=== PATIENT | female | born 1945 | race Caucasian/White ===

== ENCOUNTER → 2016-05-12 | Outpatient (CLI) | payer MEDICARE, BC ==
[~2016-05-12] MED LIST: AMOX-351 PO; ASPI325T PO; CALMOSEPTINE OINTMENT 3.5 G PACKET TOP ONE; CLOP75TA PO; DIPH25CA2 PO; FURO20TA4 PO; FURO40TA5 PO; GABA-305 PO; HUM10VIA3 SQ; HYDR-4246 PO; INSU100V36 SQ; ISOS10TA2 PO; LEVE500T26 PO; LOPE2CAP14 PO; LOSA50TA52 PO; METF500T4 PO; METO25TA6 PO; MOME17SP2 EA NOSTRIL; OXCA300T18 PO; PYRI100T2 PO; SIMV40TA5 PO
== END ==
LOC: NWCC 14:20
PROVIDERS: ATTEND Internal Medicine
DX: E11.621 Type 2 diabetes mellitus with foot ulcer (principal); L97.422 Non-pressure chronic ulcer of left heel and midfoot with fat layer exposed; R60.0 Localized edema; I70.292 Other atherosclerosis of native arteries of extremities, left leg
CPT/HCPCS: 11042; A6209; A6210; A9270; G0463

== ENCOUNTER → 2016-05-26 | Outpatient (CLI) | payer MEDICARE, BC ==
[~2016-05-26] MED LIST changes: -CALMOSEPTINE OINTMENT 3.5 G PACKET TOP ONE
== END ==
LOC: NWCC 13:38
PROVIDERS: ATTEND Internal Medicine
DX: E11.621 Type 2 diabetes mellitus with foot ulcer (principal); L97.421 Non-pressure chronic ulcer of left heel and midfoot limited to breakdown of skin; I73.9 Peripheral vascular disease, unspecified

== ENCOUNTER 2016-09-08 08:53 | Inpatient (IN) ==
[2016-09-08] MEDS: SALINE FLUSH 10ml SYRINGE IVF PRN ×6 (09:09→23:23)
--- NOTE | 2016-09-08 09:38 | Emergency Department Report ---
General Adult HPI - General Chief complaint: Altered Mental Status Stated complaint: unresponsive Time Seen by Provider: 09/08/16 09:00 Source: family, EMS Mode of arrival: EMS Limitations: other (Clinical Condition) - History of Present Illness HPI narrative: 71-year-old female is brought to the emergency department via [facility] for unresponsiveness. Patient was last noted normal at bedtime yesterday evening. Patient's awoke around 7 o'clock today and noted his was unresponsive. Patient's blood glucose was 72. Patient was transported [facility] via EMS. Patient arrives unresponsive with gurgling respirations. Patient's is at bedside. Patient has been states that his does not wish to have heroic measures performed. Patient's declines recommended endotracheal intubation at this time. He requests that the patient be made comfort care measures only as he states this is her wish. He requests to stop ongoing workup at this time. Patient was given 1 amp of D50 intravenously without improvement. Patient's primary care physician Dr. Olson is contacted and is in agreement with making the patient comfort care only. History is limited secondary to the patient's clinical condition. - Related Data Home Medications Medication Instructions Recorded Confirmed Clopidogrel Bisulfate [Plavix] 75 mg PO DAILY #0 11/04/14 09/08/16 Isosorbide Dinitrate [Isordil] 10 mg PO TID #0 11/04/14 09/08/16 Loperamide HCl [Anti-Diarrheal] 2 mg PO QID PRN #0 11/04/14 09/08/16 Losartan Potassium 50 mg PO BID #0 11/04/14 09/08/16 Metoprolol Tartrate 25 mg PO BIDWM #0 11/04/14 09/08/16 Mometasone Furoate [Nasonex] 1 spray EA NOSTRIL DAILY PRN #0 11/04/14 09/08/16 Simvastatin 40 mg PO HS #0 11/04/14 09/08/16 diphenhydrAMINE HCl [Allergy 50 mg PO HS #0 11/04/14 09/08/16 Relief] levETIRAcetam [Levetiracetam] 1,000 mg PO BID #0 11/04/14 09/08/16 Insulin Regular, Human [Novolin R] 26 - 40 unit SQ TIDWM #0 12/10/14 09/08/16 Metformin HCl 1,000 mg PO BID #0 12/10/14 09/08/16 Gabapentin 600 mg PO TID #0 12/23/14 09/08/16 Furosemide 40 mg PO BID #0 04/22/16 09/08/16 Novolin 70/30 (100Unit/ml) Inj 60 - 90 unit SQ BID #0 04/22/16 09/08/16 [Novolin 70/30] OXcarbazepine [Oxcarbazepine] 300 mg PO BID 09/08/16 09/08/16 Pnv No.95/Ferrous Fum/Folic AC 1 tab PO DAILY 09/08/16 09/08/16 [ Tablet] Potassium Chloride 10 meq PO DAILY 09/08/16 09/08/16 Allergies Allergy/AdvReac Type Severity Reaction Status Date / Time paroxetine Allergy Intermediate Verified 04/22/16 13:57 Iodinated Contrast- Oral and Allergy Unknown Verified 05/29/14 09:00 IV Dye tramadol Allergy Unknown Verified 05/29/14 09:00 codeine AdvReac Intermediate Verified 04/22/16 13:57 STEROIDS Allergy Unknown ALLERGY TO Uncoded 12/09/14 09:05 ALL STEROIDS Review of Systems Limitations: ROS unobtainable due to patient's medical condition [facility] Patient Stated Medical History Cerebrovascular Accident Yes: MULTIPLE HEMORRHAGIC Hypertension Yes Other Respiratory Yes: ALLERGIES Diabetes Mellitus Type 2 Yes Clotting Problems Yes: ON PLAVIX Surgical History: Cardiac catheterization Family History: Reviewed noncontributory. - Social History Smoking status: Never smoker Substance use type: does not use Alcohol intake frequency: does not drink Physical Exam - Limitations Limitations: other (Responsive to painful stimuli only. ) - General General appearance: obtunded - Normal Exams: Head:: Normocephalic without trauma Eyes:: No scleral icterus (Pupils equal.), irritation, or foreign bodies noted ENMT:: No facial trauma, nasal exudates, pharyngeal erythema, or exudates are noted Chest/Respirations:: Clear all smith, with good airflow, and symmetry bilaterally Cardiovascular:: Regular rate and rhythm, without murmur or gallop, Pulses 2+ all extremities, capillary refill, <2 seconds all extremities Abdomen:: Bowel sounds positive, soft, non-tender, non-distended, no hepatosplenomegaly, masses or bruits noted Lymphatic:: No lymphadenopathy, or lymphedema noted Musculoskeletal:: No tenderness, or deformity noted Integumentary:: No rashes, hives, or bruising noted, hair and nails, without abnormality Course Vital Signs Temperature 98.7 F 09/08/16 08:53 Pulse Rate 100 09/08/16 08:53 Respiratory Rate 40 H 09/08/16 08:53 Blood Pressure 210/107 H 09/08/16 08:53 Pulse Oximetry 100 09/08/16 08:53 Temperature 99.7 F 09/08/16 15:29 Pulse Rate 106 H 09/08/16 15:29 Respiratory Rate 24 09/08/16 15:29 Blood Pressure 155/90 H 09/08/16 15:29 Pulse Oximetry 100 09/08/16 15:29 Medical Decision Making - [facility] Narrative Medical decision making narrative: Patient's family ( and daughter) arrive at bedside immediately after patient's arrival to the emergency Department. Patient has gurgling respirations and is unresponsive except to painful stimuli. My recommendation is endotracheal intubation at this time secondary to the gurgling respiration for airway protection which the patient's declines. He requests to make the patient comfort care only at this time. Patient's requests to stop the evaluation at this time and to provide medications to make the patient comfortable so she is not suffering. Long discussion is had with the regarding this and the risk versus benefit of which he verbalizes agreement and understanding of. Patient's remained steadfast in his decision to make the patient comfort care only at this time and to stop the ongoing evaluation. Patient is discussed with her primary care physician Dr. Olson who is in agreement with the current plan of management. Patient is given gentle IV hydration. She is given parental narcotic and antiemetic medications intravenously with improvement of symptoms in the emergency department. She is admitted to the service of Dr. Olson who will obtain a hospice consult at this time. Dr. Olson is in agreement with the current plan of management. No further intervention is needed at this time. - Differential Diagnosis CVA, intracerebral hemorrhage, respiratory failure, metabolic disorder - Lab Data Result diagrams: 09/08/16 09:20 09/08/16 09:20 Lab Results 09/08/16 09/08/16 09/08/16 Range/Units 09:00 09:20 09:20 WBC 13.2 H (4.5-11.0) T/MM3 RBC 4.49 (4.00-5.20) M/MM3 Hgb 12.6 (12-16) GM/DL Hct 39.9 (36-46) % MCV 88.9 (80-100) UM3 MCH 28.1 (26-34) UUG MCHC 31.6 (31-37) GM/DL RDW Std Deviation 43.0 (36.9-50.2) FL Plt Count 171 (130-400) T/MM3 MPV 12.3 (9.4-12.4) UM3 Neutrophils % (Manual) 68.0 H (33-66) % Band Neutrophils % 2.0 (0-6) % Lymphocytes % (Manual) 21.0 L (23-45) % Monocytes % (Manual) 6.0 (0-9.0) % Eosinophils % (Manual) 3.0 (0-4) % Neutrophils # (Manual) 9.0 H (1.8-7.7) T/MM3 Band Neutrophils # 0.3 T/MM3 Lymphocytes # (Manual) 2.8 (1-4.8) T/MM3 Monocytes # (Manual) 0.8 (0-0.8) T/MM3 Eosinophils # (Manual) 0.4 (0-0.5) T/MM3 RBC Morph Comment Normal ABG pH 7.420 (7.350-7.450) ABG pCO2 43 (34-45) MMHG ABG pO2 190 H (80-100) MMHG ABG HCO3 28 H (22-26) MEQ/L ABG Total CO2 29.2 H (23-27) MEQ/L ABG O2 Saturation 100.0 H (95.0-98.0) % ABG Base Excess 3.0 H (-2.0-2.0) MMOL/L O2 Delivery Method Nrb mask, % FiO2 % 100 Turbidity Cancelled Sodium Cancelled Potassium Cancelled Chloride Cancelled Carbon Dioxide Cancelled Anion Gap Cancelled BUN Cancelled Creatinine Cancelled GFR Calculation Cancelled BUN/Creatinine Ratio Cancelled Glucose Cancelled Calculated Osmolality Cancelled Calcium Cancelled Total Bilirubin Cancelled Icterus Index Cancelled AST Cancelled ALT Cancelled Alkaline Phosphatase Cancelled Troponin I Cancelled Total Protein Cancelled Albumin Cancelled Globulin Cancelled Albumin/Globulin Ratio Cancelled Plasma Lactate Cancelled Procalcitonin Specimen Hemolysis Cancelled 09/08/16 09/08/16 Range/Units 09:22 09:22 WBC (4.5-11.0) T/MM3 RBC (4.00-5.20) M/MM3 Hgb (12-16) GM/DL Hct (36-46) % MCV (80-100) UM3 MCH (26-34) UUG MCHC (31-37) GM/DL RDW Std Deviation (36.9-50.2) FL Plt Count (130-400) T/MM3 MPV (9.4-12.4) UM3 Neutrophils % (Manual) (33-66) % Band Neutrophils % (0-6) % Lymphocytes % (Manual) (23-45) % Monocytes % (Manual) (0-9.0) % Eosinophils % (Manual) (0-4) % Neutrophils # (Manual) (1.8-7.7) T/MM3 Band Neutrophils # T/MM3 Lymphocytes # (Manual) (1-4.8) T/MM3 Monocytes # (Manual) (0-0.8) T/MM3 Eosinophils # (Manual) (0-0.5) T/MM3 RBC Morph Comment ABG pH (7.350-7.450) ABG pCO2 (34-45) MMHG ABG pO2 (80-100) MMHG ABG HCO3 (22-26) MEQ/L ABG Total CO2 (23-27) MEQ/L ABG O2 Saturation (95.0-98.0) % ABG Base Excess (-2.0-2.0) MMOL/L O2 Delivery Method FiO2 % Turbidity Sodium Potassium Chloride Carbon Dioxide Anion Gap BUN Creatinine GFR Calculation BUN/Creatinine Ratio Glucose Calculated Osmolality Calcium Total Bilirubin Icterus Index AST ALT Alkaline Phosphatase Troponin I Total Protein Albumin Globulin Albumin/Globulin Ratio Plasma Lactate 1.9 Procalcitonin Cancelled Specimen Hemolysis - Radiology Data CT HEAD - Declined. CXR - Declined. - EKG Data EKG #1 EKG results narrative: EKG - Cancelled. Request of Family. Disposition Clinical Impression: Altered mental status Qualifiers: Coma depth: unspecified coma depth Coma timing: unspecified coma timing Disposition: To [facility] Condition: Critical Time of Disposition: 10:00 (Admit. Dr. Samuel ) - Seen By: physician
[2016-09-08] MEDS ORDERED: FentaNYL 100 MCG/2 ML INJECTION IVP PRN (09:41)
[2016-09-08] MEDS ORDERED: ONDANSETRON 4 MG/2 ML INJECTION IVP ONE (09:41)
[2016-09-08] MEDS ORDERED: DEXTROSE 50% INJECTION 50ml VIAL IV ONE (12:04)
[2016-09-08] MEDS ORDERED: NS 1,000 ML IV ONE (12:05)
[2016-09-08] MEDS ORDERED: ONDANSETRON 4 MG/2 ML INJECTION IVP PRN (14:41)
[2016-09-08] MEDS: MORPHINE SULFATE 2 MG SYRINGE IVP PRN ×3 (15:12→23:30)
[2016-09-08] MEDS: Hyoscyamine 0.125 MG SL tab SL PRN ×2 (15:41→18:05)
--- NOTE | 2016-09-08 18:56 | Internal Med History&Physical ---
Internal Medicine HPI Chief complaint: unresponsive History of present illness: Haydee Iqbal is a 71-year-old obese white female. Last Tuesday she was released from shelter following an episode of sepsis caused by an infected wound of her left lower extremity. She seemed to be walking fine and doing all of her activities of daily living through last night. This morning however, her could not awaken her and she was gurgling, struggling to breathe. EMS brought her to the emergency department and a septic workup was started. They were about to protect her airway by intubating her and order a CT of her head. She has a history of cerebral hemorrhage in the past. At that point her and daughter said no to this. They indicated that in their previous conversations with her she absolutely did not want this to happen and they were bound and determined to prevent that as well. Her wishes were respected and they did not intubate her. She was admitted at this time for hospice consult and comfort care measures. Review of Systems ROS unobtainable: due to mental status [facility] Patient Stated Medical History Cerebrovascular Accident Yes: MULTIPLE HEMORRHAGIC Hypertension Yes Other Respiratory Yes: ALLERGIES Diabetes Mellitus Type 2 Yes Clotting Problems Yes: ON PLAVIX Surgical History: Cardiac catheterization Family History: Unknown - Social History Smoking status: Never smoker Substance use type: does not use Alcohol intake: never Housing: house Household members: spouse service: No Current occupational status: retired Current occupational exposures/hazards: No Does patient use chewing tobacco?: No Current residence: Apartment/Private Home Medications Home Medications Medication Instructions Recorded Confirmed Type Clopidogrel Bisulfate [Plavix] 75 mg PO DAILY #0 11/04/14 09/08/16 History Isosorbide Dinitrate [Isordil] 10 mg PO TID #0 11/04/14 09/08/16 History Loperamide HCl [Anti-Diarrheal] 2 mg PO QID PRN #0 11/04/14 09/08/16 History Losartan Potassium 50 mg PO BID #0 11/04/14 09/08/16 History Metoprolol Tartrate 25 mg PO BIDWM #0 11/04/14 09/08/16 History Mometasone Furoate [Nasonex] 1 spray EA NOSTRIL DAILY PRN #0 11/04/14 09/08/16 History Simvastatin 40 mg PO HS #0 11/04/14 09/08/16 History diphenhydrAMINE HCl [Allergy 50 mg PO HS #0 11/04/14 09/08/16 History Relief] levETIRAcetam [Levetiracetam] 1,000 mg PO BID #0 11/04/14 09/08/16 History Insulin Regular, Human [Novolin R] 26 - 40 unit SQ TIDWM #0 12/10/14 09/08/16 History Metformin HCl 1,000 mg PO BID #0 12/10/14 09/08/16 History Gabapentin 600 mg PO TID #0 12/23/14 09/08/16 History Furosemide 40 mg PO BID #0 04/22/16 09/08/16 History Novolin 70/30 (100Unit/ml) Inj 60 - 90 unit SQ BID #0 04/22/16 09/08/16 History [Novolin 70/30] OXcarbazepine [Oxcarbazepine] 300 mg PO BID 09/08/16 09/08/16 History Pnv No.95/Ferrous Fum/Folic AC 1 tab PO DAILY 09/08/16 09/08/16 History [ Tablet] Potassium Chloride 10 meq PO DAILY 09/08/16 09/08/16 History Allergies Allergy/AdvReac Type Severity Reaction Status Date / Time paroxetine Allergy Intermediate Verified 04/22/16 13:57 Iodinated Contrast- Oral and Allergy Unknown Verified 05/29/14 09:00 IV Dye tramadol Allergy Unknown Verified 05/29/14 09:00 codeine AdvReac Intermediate Verified 04/22/16 13:57 STEROIDS Allergy Unknown ALLERGY TO Uncoded 12/09/14 09:05 ALL STEROIDS Exam Vital signs: Temperature 99.7 F 09/08/16 15:29 Pulse Rate 106 H 09/08/16 15:29 Respiratory Rate 24 09/08/16 15:29 Blood Pressure 155/90 H 09/08/16 15:29 Pulse Oximetry 100 09/08/16 15:29 Oxygen Delivery Method Non-Rebreather Oxygen Flow Rate 10 Narrative: Patient is unresponsive - Constitutional morbidly obese, obtunded - Routine HEENT Exam Head: Present: normocephalic, atraumatic Eye: Present: conjunctivae pink. Absent: conjunctival icterus, scleral injection ENT: Present: mucous membranes moist, nares patent - Routine Neck Exam Present: supple, full ROM. Absent: JVD, carotid bruit, lymphadenopathy, thyromegaly - Routine Respiratory Exam Present: rhonchi, diminished air movement - Routine Cardiovascular Exam Present: RRR, no murmur. Absent: S3, S4 - Routine Abdominal Exam Present: soft, normoactive bowel sounds, non distended. Absent: firm - Routine Skin Exam Present: erythema, wounds (left lower leg) - Routine Neurological Exam Present: altered mental status. Absent: alert, oriented X3, normal reflexes Toes upgoing to Babinski - Routine Psychiatric Exam Present: unable to assess Internal Medicine Results - Labs CBC & Chem 7: 09/08/16 09:20 09/08/16 09:20 Assessment and Plan (1) Unresponsive Current visit: Yes Status: Acute (2) Suspected cerebrovascular accident (CVA) Current visit: Yes Status: Acute (3) Loss of consciousness Current visit: Yes Status: Acute Sepsis Assessment - Evaluation Sepsis screening result: Sepsis Risk
[2016-09-08] MEDS: ATROPINE 1% EYE DROPS PO/SL PRN ×2 (19:28→23:26)
[2016-09-09] MEDS: MORPHINE SULFATE 2 MG SYRINGE IVP PRN ×8 (00:47→21:56)
[2016-09-09] MEDS: ATROPINE 1% EYE DROPS PO/SL PRN ×7 (00:55→21:58)
[2016-09-09] MEDS: SALINE FLUSH 10ml SYRINGE IVF PRN ×3 (00:59→20:38)
--- NOTE | 2016-09-09 18:32 | Internal Med Progress Note ---
Internal Medicine Subjective Patient seen and examined. Family at bedside. All questions answered. Remains unresponsive. Temp elevated. She appears comfortable. Exam Vital Signs: Temperature 101.8 F H 09/09/16 16:50 Pulse Rate 98 09/09/16 16:50 Respiratory Rate 32 H 09/09/16 16:50 Blood Pressure 152/70 H 09/09/16 16:50 Pulse Oximetry 91 09/09/16 16:58 Oxygen Delivery Method Non-Rebreather Oxygen Flow Rate 10 Height: 5 ft 8 in Weight: 103 kg - Constitutional Present: no acute distress, morbidly obese, obtunded - Routine HEENT Exam Head: Present: normocephalic, atraumatic Eye: Present: conjunctivae pink. Absent: conjunctival icterus, scleral injection, periorbital ecchymosis, periorbital swelling ENT: Present: mucous membranes moist, oropharynx clear, nares patent - Detailed Eye Exam Pupils: Bilateral regular, round, Bilateral nonreactive/fixed, Bilateral pinpoint Sclerae/Conjunctivae: Bilateral normal inspection - Routine Respiratory Exam Present: rales, rhonchi, diminished air movement. Absent: stridor, wheezes - Routine Cardiovascular Exam Present: RRR (distant) - Routine Abdominal Exam Present: soft, normoactive bowel sounds. Absent: distended, rebound, rigid - Routine Neurological Exam Absent: alert, oriented X3 - Routine Psychiatric Exam Present: unable to assess Internal Medicine Results - Labs CBC & Chem 7: 09/08/16 09:20 09/08/16 09:20 Progress Note-A&P (1) Unresponsive Status: Acute Current Visit: Yes (2) Suspected cerebrovascular accident (CVA) Status: Acute Current Visit: Yes (3) Loss of consciousness Status: Acute Current Visit: Yes - Time Spent With Patient Total time spent is greater than 50% in coordination of care (as documented) at patient's floor/unit and/or counseling patient: 25 - 35 minutes Sepsis Assessment - Evaluation Sepsis screening result: Sepsis Risk Hospital Course Summary Disclaimer: The visit summary below is not to be considered part of the above Progress Note. Hospital Course: 09/09/16 18:34 Patient remains unresponsive, but comfortable. Family at bedside.
[2016-09-09] MEDS: ACETAMINOPHEN 650 MG SUPPOSITORY PR PRN (23:16)
[2016-09-10] MEDS: MORPHINE SULFATE 2 MG SYRINGE IVP PRN ×3 (00:13→09:07)
[2016-09-10] MEDS: ATROPINE 1% EYE DROPS PO/SL PRN ×6 (00:22→21:08)
[2016-09-10] MEDS: SALINE FLUSH 10ml SYRINGE IVF PRN (03:02)
[2016-09-10] MEDS: MORPHINE SULFATE 10mg/0.5ml ORAL LIQ SL PRN ×4 (09:59→23:18)
[2016-09-10] MEDS ORDERED: WARFARIN 5 MG TABLET PO SCH (12:00)
--- NOTE | 2016-09-10 18:04 | Progress Note ---
Subjective: Coverage for Dr Olson. F/U: Unresponsiveness - suspect CVA/cerebral hemorrhage. Resting peacefully in bed. Appears comfortable. Pain and symptoms controlled well. Family pleased with care provided. Objective Vital signs: Temperature 100.1 F 09/10/16 18:00 Pulse Rate 97 09/10/16 18:00 Respiratory Rate 22 09/10/16 18:00 Blood Pressure 150/69 H 09/10/16 18:00 Pulse Oximetry 84 L 09/10/16 18:00 Oxygen Delivery Method Nasal Cannula Oxygen Flow Rate 4 Weight: 100.5 kg - Constitutional Present: no acute distress, well nourished, well developed, obese, other ( Appears comfortable) - Routine HEENT Exam Head: Present: normocephalic, atraumatic - Routine Respiratory Exam Present: rales, rhonchi, diminished air movement. Absent: respiratory distress - Routine Cardiovascular Exam Present: RRR - Routine Abdominal Exam Present: soft, non distended, non tender - Routine Extremities Exam Present: pulses intact. Absent: cyanosis, clubbing - Routine Skin Exam Absent: mottling - Routine Neurological Exam Unresponsive to verbal stimuli. Not moving ext spontaneously. - Routine Psychiatric Exam Present: unable to assess Results - Labs CBC & Chem 7: 09/08/16 09:20 09/08/16 09:20 Assessment and Plan (1) Suspected cerebrovascular accident (CVA) Problem details: Likely cerebral hemorrhage Current visit: Yes Status: Acute (2) Loss of consciousness Current visit: Yes Status: Acute (3) Unresponsive Current visit: Yes Status: Acute Resuscitation Status: Do Not Resuscitate Assessment and Plan: [facility] consulted. Roxanol SL prn pain/air hunger. Lorazepam SL prn anxiety/agitation/air hunger. Continue with comfort care measures - pain and symptoms control. Case discussed with nursing, Hospice nurse, and family. Time spent with pt care 25 minutes. Discussed case yesterday with Dr Olson in anticipation of him being away. Sepsis Assessment - Evaluation Sepsis screening result: Severe Sepsis Risk Hospital Course Summary Disclaimer: The visit summary below is not to be considered part of the above Progress Note. Hospital Course: 09/09/16 18:34 Patient remains unresponsive, but comfortable. Family at bedside. 09/10/16 18:11 [facility] consulted. Roxanol SL prn pain/air hunger. Lorazepam SL prn anxiety/agitation/air hunger. Continue with comfort care measures - pain and symptoms control.
[2016-09-11] MEDS: LORazepam INTENSOL 1mg/0.5ml ORAL LIQUID SL PRN ×2 (00:28→08:14)
[2016-09-11] MEDS: MORPHINE SULFATE 10mg/0.5ml ORAL LIQ SL PRN ×4 (02:37→09:35)
[2016-09-11] MEDS: ATROPINE 1% EYE DROPS PO/SL PRN ×2 (05:59→08:39)
[2016-09-11 08:14] VITALS: BP 176/86; PULSE 121; RESP 40; TEMP 102.7; O2SAT 80
[2016-09-11] MEDS: ACETAMINOPHEN 650 MG SUPPOSITORY PR PRN (08:17)
[2016-09-11] MEDS ORDERED: MORPHINE SULFATE 10mg/0.5ml ORAL LIQ SL PRN (09:58)
--- NOTE | 2016-09-11 11:01 | Death Note ---
Providers - Provider Primary care physician: Dr Olson Admitting clinician: Anil Olson Attending Physician: Anil Olson Consults: 09/08/16 11:02 Hospice Consult [CONS] Routine Comment: Pronouncing clinician: Lawrence Conrad Diagnosis - Contributing Factors (1) Suspected cerebrovascular accident (CVA) Status: Acute (2) Loss of consciousness Status: Acute (3) Unresponsive Status: Acute (4) Type II diabetes mellitus Status: Chronic (5) HTN (hypertension) Status: Chronic (6) Hyperlipidemia Status: Chronic (7) Obesity Status: Chronic Summary - Date and Time Date of admission: 09/08/16 10:35 Date of : 09/11/16 Time of : 10:26 - Summary Details: Haydee Iqbal is a 71-year-old obese white female. Last Tuesday she was released from [facility] following an episode of sepsis caused by an infected wound of her left lower extremity. She seemed to be walking fine and doing all of her activities of daily living through last night. This morning however, her could not awaken her and she was gurgling, struggling to breathe. EMS brought her to the emergency department and a septic workup was started. They were about to protect her airway by intubating her and order a CT of her head. She has a history of cerebral hemorrhage in the past. At that point her and daughter said no to this. They indicated that in their previous conversations with her she absolutely did not want this to happen and they were bound and determined to prevent that as well. Her wishes were respected and they did not intubate her. She was admitted at this time for hospice consult and comfort care measures. [facility] consulted. Medications initiated to help maximize comfort. Family in to be with patient in her final days. With hospice care, pain and suffering control. Patient very peaceful. Morning of 09/11/16 Mrs Hyman peacefully with her family at bedside. Family members report they were singing to her and when the song got to the [employer] chorus, she attempted to open her eyes, shed a tear, and took her last breath. Hospice and [facility] nursing staff readily available. No Resuscitation efforts made as patient was DNR at time of admission. Emotional support provided to family by Hospice nurse, [facility] nursing staff, and Dr Conrad. - Additional Data Confirmation of as documented by pronouncing clinician: no pulse, no respirations, no heart sounds Family: at bedside Additional persons at bedside: other ([facility] nurse, [facility] nursing) Attending/PCP notified?: Yes (Dr Conrad - covering for Dr Olson) Attending physician: Anil Olson, DO Was code activated?: No (DNR at time of admission) Autopsy requested?: No bar examiner notified?: No ( expected - patient on hospice care) Organ bank notified?: Yes Advance directives: Yes Hospice patient?: Yes
== END 2016-09-11 12:30 | disposition expired | DRG 66 ==
LOC: ED 08:53 → MED 08:53
PROVIDERS: ADMIT Internal Medicine; ATTEND Internal Medicine